=== PATIENT | male | born 1995 | race Two or more races ===

== ENCOUNTER → 2019-02-07 | Outpatient (CLI) | payer OTHER ==
--- NOTE | 2019-02-07 14:32 | REP ---
RIGHT FOOT, FOUR VIEWS: HISTORY: Pain. There is no acute fracture or dislocation. The joint spaces are normal in appearance. IMPRESSION: There is no acute fracture or dislocation. Electronically Signed by Guicho Valencia MD 02/07/2019 02:44 P
--- NOTE | 2019-02-07 14:33 | REP ---
LEFT ANKLE, FOUR VIEWS: HISTORY: Foot pain. There is no acute fracture or dislocation. The joint space is normal in appearance. Soft tissue swelling is present. IMPRESSION: There is no acute fracture or dislocation. Electronically Signed by Guicho Valencia MD 02/07/2019 02:43 P
== END ==
LOC: M LRY 13:43
PROVIDERS: ATTEND Physician Assistant
DX: M79.671 Pain in right foot (principal); M25.571 Pain in right ankle and joints of right foot
CPT/HCPCS: 73610; 73630; G0463